=== PATIENT | female | born 1960 | race African-American/Black ===

== ENCOUNTER 2018-11-04 22:50 | Emergency (ER) | payer OTHER ==
[~2018-11-04] VITALS: Ht 152.4 cm; Wt 99.8 kg
[2018-11-04] MEDS ORDERED: cloNIDine HCL 0.1 MG TAB PO ONE (23:15)
[2018-11-04 23:36] LABS: Basophils # (auto) 0.1 uL; Eosinophils # (auto) 0.4 uL; Hemoglobin 12.4 g/dL (12.2-16.2); Monocytes # (auto) 0.9 uL; Red Cell Distribution Width 14.8 % (11.8-14.3)
[2018-11-04 23:38] LABS: Basophils % (auto) 0.7 % (0.0-2.0); Eosinophils % (auto) 3.3 % (0.0-7.0); Hematocrit 38.9 % (36.0-46.0); Lymphocytes # (auto) 1.9 uL; Lymphocytes % (auto) 14.5 % (10.0-50.0); Mean Corpuscular Hemoglobin 27.1 pg (28.0-32.0); Mean Corpuscular Volume 84.6 fL (80.0-100.0); Monocytes % (auto) 6.6 % (0.0-12.0); Neutrophils # (auto) 9.8 uL; Neutrophils % (auto) 74.9 % (37.0-80.0); Platelet Count (auto) 261 10^3/uL (140-450)
[2018-11-04 23:51] LABS: INR 1.01 (0.9-1.15); Partial Thromboplastin Time 27.1 sec (23.64-32.05)
[2018-11-05 00:07] LABS: Albumin 3.4 g/dL (3.4-5.0); BUN/Creatinine Ratio 28.7; Calcium 8.7 mg/dL (8.5-10.1); Magnesium 1.5 mg/dL (1.6-2.6); Potassium 4.2 mmol/L (3.5-5.1)
[2018-11-05 00:12] LABS: Bilirubin, Total 0.4 mg/dL (0.2-1.0)
[2018-11-05 04:41] VITALS: BP 115/67
[2018-11-05 04:46] LABS: Urine Bacteria FEW /hpf (None Seen); Urine Blood 2+ /uL (Negative); Urine Specific Gravity 1.014 (1.001-1.035); Urine WBC 97 /hpf (0 - 5)
[2018-11-05] MEDS ORDERED: HYDROcodone-ACET 5/325MG TAB PO ONE (05:15)
[2018-11-05] MEDS ORDERED: ONDANSETRON ODT 4 MG TAB PO ONE (05:15)
== END 2018-11-05 05:52 | disposition home or self-care (01) ==
LOC: ER 22:58
DX: N39.0 Urinary tract infection, site not specified (principal); E11.9 Type 2 diabetes mellitus without complications; I10 Essential (primary) hypertension; Z86.73 Personal history of transient ischemic attack (TIA), and cerebral infarction without residual deficits; Z90.710 Acquired absence of both cervix and uterus
CPT/HCPCS: 36415; 74176; 80053; 81001; 83690; 83735; 84484; 85025; 85610; 85730; 93005; 99284; Q0162

== ENCOUNTER 2024-11-25 19:07 | Inpatient (IN) | payer BC, MEDICAID ==
[~2024-11-25] VITALS: Ht 152.4 cm; Wt 117.8 kg
--- NOTE | 2024-11-25 19:42 | ED.PDOC ---
History of Present Illness HPI Comments 63-year-old female who came to ER via EMS for weakness. Patient has history of hypertension and diabetes, states she has good compliance to her oral medication and insulin. Has been having episodes of nausea, vomiting and diarrhea for the past 2 days. Noted also abdominal pain with loss of appetite. Was generally weak today, in the upon arrival paramedics noted blood sugar of 70. Was given a bolus of D10 water and blood sugar improved to 140. REVIEW OF SYSTEMS: No fever, no chills, or fatigue HEENT: No sore throat, no earache, no congestion, no neck pain. Cardiac: No chest pain. No palpitations. Lungs: No shortness of breath, no cough. GI: (+) nausea, (+) vomiting, (+) diarrhea, no constipation, (+) abdominal pain : No dysuria, frequency, or urgency. No hematuria. Musculoskeletal: No joint pain , no joint swelling, no extremity edema. Skin: No rash, no itching. Neuro: No headache, no dizziness, (+) weakness Physical exam General: Awake, alert and oriented. Appears fatigued Skin: Skin in warm, dry and intact. Appropriate color for ethnicity. Nailbeds pink with no cyanosis. HEENT: The head is normocephalic and atraumatic. Conjunctivae are clear without exudates or hemorrhage. Sclera is non-icteric. EOM are intact. No signs of nystagmus. Eyelids are normal in appearance without swelling or lesions. Oral mucosa is pink and moist Neck: The neck is supple with normal range of motion. No JVD. Cardiac: Heart rate and rhythm are normal. No murmurs, gallops, or rubs are auscultated. Respiratory: No signs of respiratory distress. Lung sounds are clear in all lobes bilaterally without rales, rhonchi, or wheezes. Abdominal: Abdomen is soft, non-tender without distention. Bowel sounds are present and normoactive in all four quadrants. Extremities: Upper and lower extremities are atraumatic in appearance without deformity or edema. Neurological: The patient is awake, alert and oriented to person, place, and time with normal speech. Speech is clear. There is no facial asymmetry. Chief Complaint: Weakness Time Seen by MD: 19:40 Primary Care Provider: NELSY Silverio Notes: Hand Tube Winder Notes Allergies: Coded Allergies: NO KNOWN ALLERGIES (Unverified , 11/04/18) Information Source: Patient, Emergency Med Personnel Mode of Arrival: EMS Severity: Moderate Timing: Days Duration: Intermittent Past Medical History PAST MEDICAL HISTORY: CVA, DM, HTN Surgical History: Hysterectomy SPECIALTY PERSON History: No Pertinent SPECIALTY PERSON History Family History Family History: Unknown Social History Smoker: Non-Smoker Alcohol: Denies ETOH Use Drugs: Denies Drug Use Lives In: Home Was a procedure done? Was a procedure done?: No EKG EKG : Pulse Rate (adult): 100 Cardiac Rhythm: ST ST: Old, Ant, Infarct Comments T wave inversion, V1, V2, V4-6, AvF. No STEMI Differential Dx Considerations may include: Differential diagnoses considered include but are not limited to sepsis, CVA, ACS, PE, stroke, ICH, adrenal insufficiency, viral syndrome, thyroid storm, myxedema coma , DKA, HHS, hypoglycemia, anemia, GI bleeding, renal failure, dehydration, hepatic failure, electrolyte imbalance, carbon monoxide poisoning, malignancy, UTI, other. X-Ray, Labs, Meds, VS Vital Signs Date Time Temp Pulse Resp B/P (MAP) Pulse Ox O2 Delivery O2 Flow Rate FiO2 11/25/24 23:00 65 19 166/67 (100) 97 11/25/24 22:42 208/87 11/25/24 22:35 70 15 208/87 (127) 97 11/25/24 22:00 69 16 162/69 (100) 96 11/25/24 21:04 168/71 11/25/24 21:00 63 19 160/71 (100) 96 11/25/24 20:09 65 19 96 Room Air* 0 21 11/25/24 20:09 99.3 65 19 175/69 (104) 96 99.3 11/25/24 19:42 100 11/25/24 19:13 70 11/25/24 19:07 99.4 72 14 200/82 97 99.4 Lab Test 11/25/24 22:40 11/25/24 21:38 11/25/24 20:50 11/25/24 19:47 Range/Units Troponin I High Sensitivity 104 *H 99 *H 114 *H </=34 ng/L POC Glucose 94 70-106 mg/dl White Blood Count 10.4 4.4-10.8 10^3/uL Red Blood Count 4.11 4.0-5.20 10^6/uL Hemoglobin 11.3 L 12.2-16.2 g/dL Hematocrit 35.2 L 36.0-46.0 % Mean Corpuscular Volume 85.7 80.0-100.0 fL Mean Corpuscular Hemoglobin 27.6 L 28.0-32.0 pg Mean Corpuscular Hemoglobin Concent 32.2 32.0-36.0 g/dL Red Cell Distribution Width 14.9 H 11.8-14.3 % Platelet Count 237 140-450 10^3/uL Mean Platelet Volume 9.3 6.9-10.8 fL Neutrophils (%) (Auto) 67.2 37.0-80.0 % Lymphocytes (%) (Auto) 23.3 10.0-50.0 % Monocytes (%) (Auto) 6.4 0.0-12.0 % Eosinophils (%) (Auto) 2.4 0.0-7.0 % Basophils (%) (Auto) 0.7 0.0-2.0 % Neutrophils # (Auto) 7.0 1.6-8.6 10 ^3/uL Lymphocytes # (Auto) 2.4 0.4-5.4 10 ^3/uL Monocytes # (Auto) 0.7 0-1.3 10 ^3/uL Eosinophils # (Auto) 0.3 0-0.8 10 ^3/uL Basophils # (Auto) 0.1 0-0.2 10 ^3/uL Nucleated Red Blood Cells 0.0 % Sodium Level 143 136-145 mmol/L Potassium Level 3.8 3.5-5.1 mmol/L Chloride Level 113 H 98-107 mmol/L Carbon Dioxide Level 21 20-31 mmol/L Anion Gap 9 5-15 Blood Urea Nitrogen 17 9-23 mg/dL Creatinine 1.34 H 0.550-1.02 mg/dL Glomerular Filtration Rate Calc 45 >90 mL/min BUN/Creatinine Ratio 12.7 10.0-20.0 Serum Glucose 89 74-106 mg/dL Calcium Level 8.1 L 8.7-10.4 mg/dL B-Type Natriuretic Peptide 433.18 0-100 pg/mL Lipase 36 12-53 U/L Test 11/25/24 19:42 Range/Units POC Glucose 98 70-106 mg/dl Current Medications Medications (Trade) Dose Ordered Sig/Dasha Route Start Time Stop Time Status Last Admin Aspirin 324 mg ONCE ONCE PO 11/25/24 20:30 11/25/24 20:31 DC 11/25/24 20:49 Sodium Chloride 500 ml @ 500 mls/hr Q1H ONCE IV 11/25/24 20:45 11/25/24 21:44 DC 11/25/24 21:03 Clonidine HCl (Catapres Tablet) 0.2 mg ONCE ONCE PO 11/25/24 22:45 11/25/24 22:46 DC 11/25/24 22:42 EXAM: XY CHEST XRAY 1 VIEW CLINICAL HISTORY: Elevated troponin TECHNIQUE: Single AP view of the chest WID: COMPARISON: None FINDINGS: Lines and tubes: None Chest: Cardiomegaly without pulmonary vascular congestion. No pleural effusion, pneumothorax, or consolidation. The osseous structures are grossly intact. IMPRESSION: Cardiomegaly. Time of 1ST Reevaluation: 19:36 Reevaluation 1ST: Unchanged Patient Education/Counseling: Other (Need for admission) Family Education/Counseling: No Family Present SEPSIS Sepsis Screen Physician Orders Urinalysis (11/25/24 19:33) Blood Glucose Assessment (11/25/24 19:33) Troponin-I Hs (11/25/24 23:30) Electrocardigram (11/25/24 20:34) Electrocardigram (11/25/24 21:34) Electrocardigram (11/25/24 23:34) Quarter Trimmer (11/25/24 ) Saline Lock (11/25/24 20:37) Chest Xray 1 View (11/25/24 20:37) Aspirin Tablet (11/26/24 10:00) * Cardiology Consult (11/25/24 22:21) Atorvastatin (Lipitor) (11/26/24 22:00) Amlodipine Tablet (Norvasc Tablet) (11/26/24 10:00) Hydralazine Injection (Apresoline Inject (11/25/24 22:30) Consistent Carb(Ccho)Diabetes (11/26/24 Breakfast) Glucose Blood (Accu-Chek Comfort Curve T (11/26/24 00:00) Insulin R (Human) (Insulin R) (11/26/24 00:00) Dextrose 50% Syringe (11/25/24 22:30) Allergies (11/25/24 22:21) Code Status (11/25/24 22:21) Sodium Chloride Lock (Saline Lock Ns) (11/26/24 06:00) Oxygen Per Hour (11/25/24 22:21) Hydrocodone-Acet 5/325mg Tab ([place] 5/32 (11/25/24 22:30) Ondansetron Hcl (Zofran) (11/25/24 22:30) Docusate Sodium Capsule (Colace Capsule) (11/25/24 22:30) Complete Blood Count (11/26/24 04:00) Comprehensive Metabolic Panel (11/26/24 04:00) Echo 2d Mode Cardiac Dop (11/25/24 22:21) Condition: Serious (11/25/24 22:21) Acetaminophen Tablet (Tylenol Tablet) (11/25/24 22:30) Bedrest With Bathroom Privileg (11/25/24 22:21) Sequential Compression Device (11/25/24 ) Vital Signs Date Time Temp Pulse Resp B/P (MAP) Pulse Ox O2 Delivery O2 Flow Rate FiO2 11/25/24 23:00 65 19 166/67 (100) 97 11/25/24 22:42 208/87 11/25/24 22:35 70 15 208/87 (127) 97 11/25/24 22:00 69 16 162/69 (100) 96 11/25/24 21:04 168/71 11/25/24 21:00 63 19 160/71 (100) 96 11/25/24 20:09 65 19 96 Room Air* 0 21 11/25/24 20:09 99.3 65 19 175/69 (104) 96 99.3 11/25/24 19:42 100 11/25/24 19:13 70 11/25/24 19:07 99.4 72 14 200/82 97 99.4 Laboratory Tests Test 11/25/24 19:47 White Blood Count 10.4 10^3/uL (4.4-10.8) Medications Medications Dose Ordered Sig/Dasha Route Start Time Stop Time Status Last Admin Dose Admin Aspirin 324 mg ONCE ONCE PO 11/25/24 20:30 11/25/24 20:31 DC 11/25/24 20:49 Clonidine HCl 0.2 mg ONCE ONCE PO 11/25/24 22:45 11/25/24 22:46 DC 11/25/24 22:42 Sodium Chloride 500 ml @ 500 mls/hr Q1H ONCE IV 11/25/24 20:45 11/25/24 21:44 DC 11/25/24 21:03 Departure 1 Departure Time of Disposition: 23:52 Impression: Primary Impression: Generalized weakness Additional Impressions: Elevated troponin Hypoglycemia Disposition: ADMITTED INPATIENT Condition: Stable Comments 63-year-old female who presented with a complaint of generalized weakness and h ypoglycemia. Blood sugar improved after treatment with EMS. Patient found to have elevated troponin, no STEMI on EKG. Patient admitted to hospitalist service for further treatment, evaluation and monitoring. Extensive evaluation was performed in attempt to identify or rule out: (See differential diagnosis section) The following tests were ordered, and results were reviewed by me and discussed with patient: (See diagnostic results section) The following test were independently interpreted by me: EKG Additional information was gathered from interviewing the following independent historians: EMS personnel Decision regarding hospitalization or escalation of hospital level of care: Risk and benefits of admission for further treatment of patient's condition was considered. Due to patient's current clinical condition, high risk of decline and poor outcome if discharged and need for further inpatient management and monitoring, patient will be admitted to the hospital. Discussed with patient. Critical Care Note Critical Care Time?: No Stability Stability form required: No Heart Score Heart Score: Heart Score Response (Comments) Value History N/A 0 EKG N/A 0 Age N/A 0 Risk Factors N/A 0 Troponin N/A 0 Total 0 I personally scribed for YAHIR NICKERSON MD ([email or web address]) on 11/25/24 at 19:42. Electronically submitted by Luis Boateng ([email or web address]). I personally scribed for YAHIR NICKERSON MD ([email or web address]) on 11/25/24 at 21:33. Electronically submitted by Luis Boateng ([employer]). YAHIR NICKERSON MD Nov 25, 2024 19:42
[2024-11-25 20:00] LABS: Hematocrit 35.2 % (36.0-46.0); Hemoglobin 11.3 g/dL (12.2-16.2); Mean Corpuscular Hemoglobin 27.6 pg (28.0-32.0); Mean Corpuscular Volume 85.7 fL (80.0-100.0); Nucleated Red Blood Cells % 0.0 %
[2024-11-25 20:04] LABS: Potassium 3.8 mmol/L (3.5-5.1); Sodium 143 mmol/L (136-145)
[2024-11-25 20:05] LABS: Anion Gap 9 (5-15); Carbon Dioxide 21 mmol/L (20-31)
[2024-11-25 20:09] VITALS: PULSE 65; RESP 19; O2SAT 96
--- NOTE | 2024-11-25 20:09 | ECG ---
[facility]– [place] Date: 2024-11-25 Test Time: 19:13:21 Pat Name: DANIELA HOLMAN Department: ED Room: 0275T Gender: F [employer] Manager: ZANA : 1960 Requested By: YAHIR NICKERSON Order Number: [id number] Reading MD: Zachary Waters Measurements Intervals Thayer Rate: 70 P: 53 GA: 166 QRS: 54 QRSD: 73 T: 236 QT: 397 QTc: 429 Interpretive Statements Sinus rhythm Anteroseptal infarct, old Repol abnrm suggests ischemia, anterolateral Electronically Signed On 11-29-2024 22:46:13 PDT by Zachary Waters Please click the below link to view image of tracing.
[2024-11-25 20:10] LABS: Glucose 89 mg/dL (74-106)
[2024-11-25 20:11] LABS: BUN/Creatinine Ratio 12.7 (10.0-20.0); Blood Urea Nitrogen 17 mg/dL (9-23); Lipase 36 U/L (12-53)
[2024-11-25 20:18] LABS: Calcium 8.1 mg/dL (8.7-10.4); Chloride 113 mmol/L (98-107)
[2024-11-25] MEDS: SODIUM CHLORIDE 0.9% 500 ML IV ONE (21:03)
[2024-11-25] MEDS: NITROGLYCERIN 2% OINT 1GM PKG TD ONE (21:04)
--- NOTE | 2024-11-25 21:19 | DVH ---
EXAM: XY CHEST XRAY 1 VIEW CLINICAL HISTORY: Elevated troponin TECHNIQUE: Single AP view of the chest WID: COMPARISON: None FINDINGS: Lines and tubes: None Chest: Cardiomegaly without pulmonary vascular congestion. No pleural effusion, pneumothorax, or consolidation. The osseous structures are grossly intact. IMPRESSION: Cardiomegaly.
[2024-11-25] MEDS ORDERED: HYDROcodone-ACET 5/325MG TAB PO PRN (22:30)
[2024-11-25] MEDS ORDERED: ONDANSETRON HCL 4 MG/2 ML VIAL IV PRN (22:30)
[2024-11-25] MEDS ORDERED: DEXTROSE (50%) 50ML SYRG IV PRN (22:30)
[2024-11-25] MEDS ORDERED: ACETAMINOPHEN 325 MG TAB PO PRN (22:30)
[2024-11-25] MEDS ORDERED: DOCUSATE SOD 100 MG CAP PO PRN (22:30)
--- NOTE | 2024-11-25 23:29 | DVHHP2 ---
History of Present Illness Reason for Visit: Diabetes mellitus with hypoglycemia History of Present Illness The patient is a 63-year-old female with past medical history of CVA, DM, and hypertension who presented to [facility] ED with complaint of generalized weakness. Patient reports she has been experiencing nausea, vomiting, diarrhea, abdominal pain and loss of appetite for the past two days. Patient's initial blood sugar was 70 and was given bolus of D10 water and blood sugar improved to 140. Patient was seen and evaluated in the ED, laboratory data shows WBC 10.4, platelets 237, sodium 143, potassium 3.8, BUN 17, creatinine 1.34, GFR 45, glucose 89, calcium 8.1, BNP 433.18, troponin 99, blood pressure 168/71, heart rate 64, temperature 99.3 F, O2 saturation 96% on room air. Chest x-ray revealing cardiomegaly. Patient was given aspirin 325 mg p.o. x1, please see medication orders section in the computer. On my assessment, patient denied chest pain at this moment, no headache, no dizziness, no shortness of breaths, no nausea, no vomiting, no fever, no chills. Patient was admitted for further evaluation and medical management. Past Medical History CVA, DM, HTN Past Surgical History Hysterectomy Family History Reviewed, noncontributory to the management of this case. Past Social History The patient lives at home, denies smoking, alcohol or illicit drugs abuse. Review of Systems Constitutional: Yes: Weakness; No: Fever, Chills, Sweats, Malaise, Other Eyes: No: Pain, Vision change, Conjunctivae inflammation, Eyelid inflammation, Other, Redness ENT: No: Ear pain, Ear discharge, Nose pain, Nose discharge, Nose congestion, Mouth pain, Mouth swelling, Throat pain, Throat swelling, Other Respiratory: No: Cough, Dry, Shortness of breath, SOB with excertion, Wheezing, Hemoptysis, Pleuritic Pain, Sputum, Wheezing, Other Cardiovascular: No: Chest Pain, Palpitations, Orthopnea, Paroxysmal Noc. Dyspnea, Edema, Lt Headedness, Other Gastrointestinal: Nausea, Vomiting, Abdominal Pain, Diarrhea, Other (Loss of appetite); No: Constipation, Melena, Hematochezia Genitourinary: No Dysuria, No Frequency, No Incontinence, No Hematuria, No Retention, No Other Musculoskeletal: No: other, neck pain, shoulder pain, arm pain, back pain, hand pain, leg pain, foot pain Skin: No: Rash, Lesions, Jaundice, Bruising, Other Neurological: No: Weakness, Numbness, Incoordination, Change in speech, Confusion, Seizures, Other Allergies: Coded Allergies: NO KNOWN ALLERGIES (Unverified , 11/04/18) Medications Current Medications Medications Dose Ordered Sig/Dasha Route Start Time Stop Time Status Last Admin Dose Admin Aspirin 81 mg DAILY PO 11/26/24 10:00 Atorvastatin Calcium 20 mg HS PO 11/26/24 22:00 Amlodipine Besylate 5 mg DAILY PO 11/26/24 10:00 Hydralazine HCl 10 mg Q6HP PRN IV 11/25/24 22:30 Diagnostic Test (Pha) 1 strip IQ4HR 11/26/24 00:00 Insulin Human Regular IQ4HR SC 11/26/24 00:00 Dextrose 50 ml UD PRN IV 11/25/24 22:30 Sodium Chloride 10 ml Q8HR IV 11/26/24 06:00 Acetaminophen/ Hydrocodone Bitart 1 tab Q4HP PRN PO 11/25/24 22:30 Ondansetron HCl 4 mg Q4HP PRN IV 11/25/24 22:30 Docusate Sodium 100 mg BIDPRN PRN PO 11/25/24 22:30 Acetaminophen 650 mg Q6HP PRN PO 11/25/24 22:30 Exam Vital Signs Vital Signs Date Time Temp Pulse Resp B/P (MAP) Pulse Ox O2 Delivery O2 Flow Rate FiO2 11/25/24 22:42 208/87 11/25/24 22:35 70 15 97 11/25/24 20:09 Room Air* 0 21 11/25/24 20:09 99.3 99.3 General Appearance: Alert, Oriented X3, Cooperative, No acute distress HEENT: Atraumatic, PERRLA, EOMI, Mucous membr. moist/pink Respiratory: Normal air movement Cardiovascular: Regular rate, Normal S1, Normal S2, No murmurs Abdominal: Normal bowel sounds, Soft, No tenderness, No hepatospenomegaly, No masses Extremities: No clubbing, No cyanosis, Normal pulses, No tenderness/swelling Skin: No rashes, No significant lesion Neuro: Normal speech, Normal tone, Sensation intact, Cranial nerves 3-12 NL, Reflexes 2+, Other (Generalized weakness) Psych/Mental Status: Mental status NL, Mood NL Labs/Xrays Labs Test 11/25/24 22:40 11/25/24 21:38 11/25/24 19:47 Range/Units Troponin I High Sensitivity 104 *H </=34 ng/L POC Glucose 94 70-106 mg/dl White Blood Count 10.4 4.4-10.8 10^3/uL Red Blood Count 4.11 4.0-5.20 10^6/uL Hemoglobin 11.3 L 12.2-16.2 g/dL Hematocrit 35.2 L 36.0-46.0 % Mean Corpuscular Volume 85.7 80.0-100.0 fL Mean Corpuscular Hemoglobin 27.6 L 28.0-32.0 pg Mean Corpuscular Hemoglobin Concent 32.2 32.0-36.0 g/dL Red Cell Distribution Width 14.9 H 11.8-14.3 % Platelet Count 237 140-450 10^3/uL Mean Platelet Volume 9.3 6.9-10.8 fL Neutrophils (%) (Auto) 67.2 37.0-80.0 % Lymphocytes (%) (Auto) 23.3 10.0-50.0 % Monocytes (%) (Auto) 6.4 0.0-12.0 % Eosinophils (%) (Auto) 2.4 0.0-7.0 % Basophils (%) (Auto) 0.7 0.0-2.0 % Neutrophils # (Auto) 7.0 1.6-8.6 10 ^3/uL Lymphocytes # (Auto) 2.4 0.4-5.4 10 ^3/uL Monocytes # (Auto) 0.7 0-1.3 10 ^3/uL Eosinophils # (Auto) 0.3 0-0.8 10 ^3/uL Basophils # (Auto) 0.1 0-0.2 10 ^3/uL Nucleated Red Blood Cells 0.0 % Sodium Level 143 136-145 mmol/L Potassium Level 3.8 3.5-5.1 mmol/L Chloride Level 113 H 98-107 mmol/L Carbon Dioxide Level 21 20-31 mmol/L Anion Gap 9 5-15 Blood Urea Nitrogen 17 9-23 mg/dL Creatinine 1.34 H 0.550-1.02 mg/dL Glomerular Filtration Rate Calc 45 >90 mL/min BUN/Creatinine Ratio 12.7 10.0-20.0 Serum Glucose 89 74-106 mg/dL Calcium Level 8.1 L 8.7-10.4 mg/dL B-Type Natriuretic Peptide 433.18 0-100 pg/mL Lipase 36 12-53 U/L PATIENT: MATTHEW HOLMANCCT: [id number] UNIT: [id number] : 1960 LOC: ER ROOM / BED: / AGE / SEX: 63 / F ADM STATUS: REG ER SERVICE 36 ORDERING PHYSICIAN: YAHIR NICKERSON MD PROCEDURE(s): CXR1 - CHEST XRAY 1 VIEW REASON: Elevated troponin ORDER NUMBER(s): [id number], ACCESSION NUMBER(s): [id number] EXAM: XY CHEST XRAY 1 VIEW CLINICAL HISTORY: Elevated troponin TECHNIQUE: Single AP view of the chest WID: COMPARISON: None FINDINGS: Lines and tubes: None Chest: Cardiomegaly without pulmonary vascular congestion. No pleural effusion, pneumothorax, or consolidation. The osseous structures are grossly intact. IMPRESSION: Cardiomegaly. SEPSIS Sepsis Screen Date sepsis recognized/suspect: Nov 25, 2024 Time Sepsis recognized/suspect: 2008 Recent Procedure: No On Antibiotic Therapy: No Respiratory Rate >20: No Heart Rate >90: No Temp<36 C (96.8 F) or >38.3 C: No SBP <90 or MAP <65 mmHG: No New Acute Mental Status Change: No Is the patient on CPAP, BIPAP,: No Physician Orders Urinalysis (11/25/24 19:33) Blood Glucose Assessment (11/25/24 19:33) Troponin-I Hs (11/25/24 23:30) Electrocardigram (11/25/24 20:34) Electrocardigram (11/25/24 21:34) Electrocardigram (11/25/24 23:34) Guest House Manager (11/25/24 ) Saline Lock (11/25/24 20:37) Chest Xray 1 View (11/25/24 20:37) Aspirin Tablet (11/26/24 10:00) * Cardiology Consult (11/25/24 22:21) Atorvastatin (Lipitor) (11/26/24 22:00) Amlodipine Tablet (Norvasc Tablet) (11/26/24 10:00) Hydralazine Injection (Apresoline Inject (11/25/24 22:30) Consistent Carb(Ccho)Diabetes (11/26/24 Breakfast) Glucose Blood (Accu-Chek Comfort Curve T (11/26/24 00:00) Insulin R (Human) (Insulin R) (11/26/24 00:00) Dextrose 50% Syringe (11/25/24 22:30) Allergies (11/25/24 22:21) Code Status (11/25/24 22:21) Sodium Chloride Lock (Saline Lock Ns) (11/26/24 06:00) Oxygen Per Hour (11/25/24 22:21) Hydrocodone-Acet 5/325mg Tab ([place] 5/32 (11/25/24 22:30) Ondansetron Hcl (Zofran) (11/25/24 22:30) Docusate Sodium Capsule (Colace Capsule) (11/25/24 22:30) Complete Blood Count (11/26/24 04:00) Comprehensive Metabolic Panel (11/26/24 04:00) Echo 2d Mode Cardiac Dop (11/25/24 22:21) Condition: Serious (11/25/24 22:21) Acetaminophen Tablet (Tylenol Tablet) (11/25/24 22:30) Bedrest With Bathroom Privileg (11/25/24 22:21) Sequential Compression Device (11/25/24 ) Admit (11/25/24 23:26) Nitroglycerin Sublingual (Ntrostat Subli (11/25/24 23:30) Morphine Sulfate Injection (11/25/24 23:30) Stat Ekg For Chest Pain (11/25/24 23:26) Notify Md Of Changes From Base (11/25/24 23:26) Accounting Generalist For 24 Hours (11/25/24 23:26) Emergency Dysrhythmia Protocol (11/25/24 23:26) Rhythm Strips Once Every Shift (11/25/24 23:26) Oxygen By Nasal Cannula (11/25/24 23:26) Vital Signs Date Time Temp Pulse Resp B/P (MAP) Pulse Ox O2 Delivery O2 Flow Rate FiO2 11/25/24 22:42 208/87 11/25/24 22:35 70 15 208/87 (127) 97 11/25/24 21:04 168/71 11/25/24 21:00 63 19 160/71 (100) 96 11/25/24 20:09 65 19 96 Room Air* 0 21 11/25/24 20:09 99.3 65 19 175/69 (104) 96 99.3 11/25/24 19:42 100 11/25/24 19:13 70 11/25/24 19:07 99.4 72 14 200/82 97 99.4 Laboratory Tests Test 11/25/24 19:47 White Blood Count 10.4 10^3/uL (4.4-10.8) Medications Medications Dose Ordered Sig/Dasha Route Start Time Stop Time Status Last Admin Dose Admin Aspirin 324 mg ONCE ONCE PO 11/25/24 20:30 11/25/24 20:31 DC 11/25/24 20:49 324 MG Clonidine HCl 0.2 mg ONCE ONCE PO 11/25/24 22:45 11/25/24 22:46 DC 11/25/24 22:42 0.2 MG Sodium Chloride 500 ml @ 500 mls/hr Q1H ONCE IV 11/25/24 20:45 11/25/24 21:44 DC 11/25/24 21:03 500 MLS/HR Assessment/Plan Assessment/Plan Generalized weakness Elevated troponin Hypocalcemia Acute renal injury Diabetes mellitus with hypoglycemia Elevated brain natriuretic peptide level Plan 1. Admit to telemetry units 2. Breathing treatment 3. Pain control management 4. Management of fluids and electrolytes 5. Consultation for cardiology 6. Diagnostic tests chest x-ray 7. DVT prophylaxis-on aspirin 8. Repeat labs CBC, CMP in a.m. 9. Continue with current medical management 10. Treatment plan discussed with patient and RN. Patient verbalized understanding. Plan discussed with: Patient, Other (RN) My Orders Orders - RAUL BAILEY DNP Procedure Category Date Status Time Aspirin Tablet PHA 11/26/24 In Process 10:00 * Cardiology Consult CONS 11/25/24 Transmitted 22:21 Atorvastatin (Lipitor) PHA 11/26/24 In Process 22:00 Amlodipine Tablet PHA 11/26/24 In Process (Norvasc Tablet) 10:00 Hydralazine Injection PHA 11/25/24 In Process (Apresoline Inject 22:30 Consistent DIET 11/26/24 Transmitted Carb(Ccho)Diabetes Breakfast Glucose Blood PHA 11/26/24 In Process (Accu-Chek Comfort 00:00 Insulin R (Human) PHA 11/26/24 In Process (Insulin R) 00:00 Dextrose 50% Syringe PHA 11/25/24 In Process 22:30 Allergies HARDIK 11/25/24 In Process 22:21 Code Status CODE 11/25/24 Transmitted 22:21 Sodium Chloride Lock PHA 11/26/24 In Process (Saline Lock Ns) 06:00 Oxygen Per Hour RT 11/25/24 Transmitted 22:21 Hydrocodone-Acet PHA 11/25/24 In Process 5/325mg Tab ([place]ell 22:30 Ondansetron Hcl PHA 11/25/24 In Process (Zofran) 22:30 Docusate Sodium PHA 11/25/24 In Process Capsule (Colace 22:30 Complete Blood Count LAB 11/26/24 Verified 04:00 Comprehensive LAB 11/26/24 Verified Metabolic Panel 04:00 Echo 2d Mode Cardiac US 11/25/24 Logged DOP 22:21 Condition: Serious HARDIK 11/25/24 In Process 22:21 Acetaminophen Tablet PHA 11/25/24 In Process (Tylenol Tablet) 22:30 Bedrest With Bathroom HARDIK 11/25/24 In Process Privileg 22:21 Sequential HARDIK 11/25/24 In Process Compression Device Admit ADMIT 11/25/24 Verified 23:26 Nitroglycerin [facility] 11/25/24 Verified Sublingual (Ntrostat 23:30 Morphine Sulfate PHA 11/25/24 Verified Injection 23:30 Stat Ekg For Chest [facility] 11/25/24 Verified Pain 23:26 Notify Md Of Changes [facility] 11/25/24 Verified From Base 23:26 Accounting Generalist For [facility] 11/25/24 Verified 24 Hours 23:26 Emergency Dysrhythmia [facility] 11/25/24 Verified Protocol 23:26 Rhythm Strips Once [facility] 11/25/24 Verified Every Shift 23:26 Oxygen By Nasal RT 11/25/24 Verified Cannula 23:26 Problem List: (1) Generalized weakness (2) Elevated troponin (3) Hypocalcemia (4) Acute renal injury (5) Diabetes mellitus with hypoglycemia (6) Elevated brain natriuretic peptide (BNP) level Date of Service: Nov 25, 2024 Billing Provider: RAUL BAILEY DNP Common Visit Codes: [id number] INP/OBS CARE (HIGH) RAUL BAILEY DNP Nov 25, 2024 23:29
[2024-11-25] MEDS ORDERED: MORPHINE SULFATE INJ 2 MG/ml SYRG IV PRN (23:30)
[2024-11-25] MEDS ORDERED: NITROGLYCERIN 0.4 MG SL TAB SL PRN (23:30)
--- NOTE | 2024-11-25 23:49 | DVHINCON2 ---
Date of service: Nov 25, 2024 Referring Physician Jesse Reason for Consultation Elevated troponin History of Present Illness This is a 63-year-old female with a PMH of CVA, DM and HTN who is brought in by EMS for a complaint of weakness. Patient states she is complaint with her oral medication and insulin. Patient reports she has been having episodes of nausea, vomiting and diarrhea for the past 2 days. Noted also abdominal pain with loss of appetite. Patient was generally weak today, in the upon arrival paramedics noted blood sugar of 70. Patient was given a bolus of D10 water and blood sugar improved to 140. TROP 114, 99, 104. Chest x-ray shows cardiomegaly. EKG shows ta chycardia at 100. Patient was admitted to the hospital. I am asked to consult on this patient. Allergies: Coded Allergies: NO KNOWN ALLERGIES (Unverified , 11/04/18) Current Medications Current Medications Medications (Trade) Dose Ordered Sig/Dasha Route PRN Reason Start Time Stop Time Status Last Admin Aspirin 81 mg DAILY PO 11/26/24 10:00 Atorvastatin Calcium (Lipitor) 20 mg HS PO 11/26/24 22:00 Amlodipine Besylate (Norvasc Tablet) 5 mg DAILY PO 11/26/24 10:00 Hydralazine HCl (Apresoline Injection) 10 mg Q6HP PRN IV SBP>150 11/25/24 22:30 Diagnostic Test (Pha) (Accu-Chek Comfort Curve T) 1 strip IQ4HR 11/26/24 00:00 Insulin Human Regular (InsuLIN R) IQ4HR SC 11/26/24 00:00 Dextrose 50 ml UD PRN IV Blood Sugar LESS THAN 60 11/25/24 22:30 Sodium Chloride (Saline Lock Ns) 10 ml Q8HR IV 11/26/24 06:00 Acetaminophen/ Hydrocodone Bitart (Bolivar 5/325MG Tab) 1 tab Q4HP PRN PO MODERATE PAIN (4-6 PAIN SCALE) 11/25/24 22:30 Ondansetron HCl (Zofran) 4 mg Q4HP PRN IV NAUSEA / VOMITING 11/25/24 22:30 Docusate Sodium (Colace Capsule) 100 mg BIDPRN PRN PO FOR CONSTIPATION 11/25/24 22:30 Acetaminophen (Tylenol Tablet) 650 mg Q6HP PRN PO PAIN SCALE 1-3 OR TEMP>100.4 11/25/24 22:30 Review of Systems REVIEW OF SYSTEMS: No fever, no chills, or fatigue HEENT: No sore throat, no earache, no congestion, no neck pain. Cardiac: No chest pain. No palpitations. Lungs: No shortness of breath, no cough. GI: (+) nausea, (+) vomiting, (+) diarrhea, no constipation, (+) abdominal pain : No dysuria, frequency, or urgency. No hematuria. Musculoskeletal: No joint pain , no joint swelling, no extremity edema. Skin: No rash, no itching. Neuro: No headache, no dizziness, (+) weakness Vital Signs Vital Signs Date Time Temp Pulse Resp B/P (MAP) Pulse Ox O2 Delivery O2 Flow Rate FiO2 11/25/24 22:42 208/87 11/25/24 22:35 70 15 97 11/25/24 20:09 Room Air* 0 21 11/25/24 20:09 99.3 99.3 Physical Exam GENERAL: Alert and oriented x 3. No acute distress. EYES: PERRL, EOMI. Anicteric. HENT: Moist mucous membranes. LUNGS: Clear to auscultation bilaterally. CARDIOVASCULAR: Regular rate and rhythm. ABDOMEN: Soft, nontender and nondistended. EXTREMITIES: No edema. NEUROLOGIC: No focal neurological deficits. SKIN: Warm, dry. Labs/Diagnostic Data Labs Test 11/25/24 22:40 11/25/24 21:38 11/25/24 19:47 Range/Units Troponin I High Sensitivity 104 *H </=34 ng/L POC Glucose 94 70-106 mg/dl White Blood Count 10.4 4.4-10.8 10^3/uL Red Blood Count 4.11 4.0-5.20 10^6/uL Hemoglobin 11.3 L 12.2-16.2 g/dL Hematocrit 35.2 L 36.0-46.0 % Mean Corpuscular Volume 85.7 80.0-100.0 fL Mean Corpuscular Hemoglobin 27.6 L 28.0-32.0 pg Mean Corpuscular Hemoglobin Concent 32.2 32.0-36.0 g/dL Red Cell Distribution Width 14.9 H 11.8-14.3 % Platelet Count 237 140-450 10^3/uL Mean Platelet Volume 9.3 6.9-10.8 fL Neutrophils (%) (Auto) 67.2 37.0-80.0 % Lymphocytes (%) (Auto) 23.3 10.0-50.0 % Monocytes (%) (Auto) 6.4 0.0-12.0 % Eosinophils (%) (Auto) 2.4 0.0-7.0 % Basophils (%) (Auto) 0.7 0.0-2.0 % Neutrophils # (Auto) 7.0 1.6-8.6 10 ^3/uL Lymphocytes # (Auto) 2.4 0.4-5.4 10 ^3/uL Monocytes # (Auto) 0.7 0-1.3 10 ^3/uL Eosinophils # (Auto) 0.3 0-0.8 10 ^3/uL Basophils # (Auto) 0.1 0-0.2 10 ^3/uL Nucleated Red Blood Cells 0.0 % Sodium Level 143 136-145 mmol/L Potassium Level 3.8 3.5-5.1 mmol/L Chloride Level 113 H 98-107 mmol/L Carbon Dioxide Level 21 20-31 mmol/L Anion Gap 9 5-15 Blood Urea Nitrogen 17 9-23 mg/dL Creatinine 1.34 H 0.550-1.02 mg/dL Glomerular Filtration Rate Calc 45 >90 mL/min BUN/Creatinine Ratio 12.7 10.0-20.0 Serum Glucose 89 74-106 mg/dL Calcium Level 8.1 L 8.7-10.4 mg/dL B-Type Natriuretic Peptide 433.18 0-100 pg/mL Lipase 36 12-53 U/L Assessment Elevated troponin. Generalized weakness. Diabetes mellitus with hypoglycemia. HTN. Plan/Recommendation I agree with your ongoing assessment and care of plan. Echocardiogram. Morphine and Bolivar for pain management. Amlodipine. Aspirin, Lipitor. IV Hydralazine for SBP > 150. Nitro SL. Additional plan as per the hospital course. A total of 45 minutes was spent reviewing the patient record, examining the patient, making a diagnostic and therapeutic plan, discussing this plan with medical personnel, following up on diagnostic studies and following the patient for clinical stability excluding any and all procedures. At least 50% of this time was spent in direct, [id number] contact. Plan discussed with: Patient MAITE ALCALA MD Nov 25, 2024 23:31
[2024-11-26] VITALS (9 sets, daily range): BP systolic 123–184; BP diastolic 60–117; PULSE 60–85; RESP 17–18; TEMP 97.6–98.6; O2SAT 95–98
[2024-11-26] MEDS: InsuLIN REG 1unit/0.01ml Soln (100units/ml) SC SCH (00:16)
[2024-11-26] MEDS: ACCU-CHEK COMFORT CURVE STRIP VI SCH (00:17)
[2024-11-26] MEDS: hydrALAZINE HCL 20 MG/ML VL IV PRN (02:10)
[2024-11-26] MEDS: CALCIUM GLUC 1,000mg/50ml-NS 50 ML IV ONE (02:30)
[2024-11-26] MEDS ORDERED: INSR100KIT IV (02:45)
[2024-11-26 05:59] LABS: Hematocrit 33.7 % (36.0-46.0); Hemoglobin 10.9 g/dL (12.2-16.2); Mean Corpuscular Hemoglobin 28.5 pg (28.0-32.0); Mean Corpuscular Volume 87.9 fL (80.0-100.0); Nucleated Red Blood Cells % 0.0 %
[2024-11-26] MEDS: SODIUM CHLOR 0.9% PF (SALINE LOCK) 10ML VIAL/SYR IV SCH (06:00)
[2024-11-26 06:08] LABS: Albumin 3.6 g/dL (3.2-4.8); Alkaline Phosphatase 83 U/L (46-116); Anion Gap 11 (5-15); BUN/Creatinine Ratio 11.8 (10.0-20.0); Blood Urea Nitrogen 22 mg/dL (9-23); Calcium 9.2 mg/dL (8.7-10.4); Carbon Dioxide 21 mmol/L (20-31); Potassium 3.8 mmol/L (3.5-5.1); Sodium 141 mmol/L (136-145); Total Protein 6.2 g/dL (5.7-8.2)
[2024-11-26 06:09] LABS: Bilirubin, Total 0.4 mg/dL (0.2-1.0)
[2024-11-26 06:11] LABS: Alanine Aminotransferase < 9 U/L (7-40); Chloride 109 mmol/L (98-107); Glucose 197 mg/dL (74-106)
--- NOTE | 2024-11-26 08:35 | DVHPNRES ---
Progress Note Date Seen: Nov 26, 2024 Resident Creating Document: OSCAR CANDELARIO RESIDENT Medical Necessity Reason Pt with a Central, PICC or Fol: No Subjective Review of Systems Lucina Garcia is a 63-year-old female with past medical history of TIA, DM, HLD and hypertension who presented to ER with cc of headache, dizziness, weakness. Headache started yesterday in the morning, 8/10, throbbing, associated w/ mild tearing in the left eye. On arrival to ER she had an episode of dizziness with the feeling of everything around her was spinning. She had nausea, vomiting, with 3 episodes of vomiting before presenting to ER. She also complained for SOB since 2 yrs, progressively getting worse, now experience SOB on walking 10 feet. PMHx: TIAs in 2012, DM, HLD and hypertension PSHx: Unkown abdominal surgery in past Social history: Denies smoking, alcohol, recreational drug. Lives in house with daughter. Home medication: Unsure ROS: Constitutional: Complains of chills HEENT: Denies changes in vision and hearing. Respiratory: Shortness of breaths Cardiovascular: Denies chest discomfort or palpitations GI: Nausea, vomiting : Denies dysuria and urinary frequency. Musculoskeletal: Denies myalgias and joint pain Skin: Denies rash and pruritus. Neurological: Dizziness, headache, with tearing of left eye She was examined at bedside today. Her vitals show high blood pressure. She does not complain of any headache or dizziness now. She continues to complain of shortness of breaths. Objective vital signs Vital Sign Date Time Temp Pulse Resp B/P (MAP) Pulse Ox O2 Delivery O2 Flow Rate FiO2 11/26/24 05:00 97.9 60 17 143/71 (95) 98 97.9 11/26/24 01:52 Room Air* 0 21 Total Intake and Output 11/25/24 11/25/24 11/26/24 15:00 23:00 07:00 Intake Total 500 ml 0 ml Balance 500 ml 0 ml medications Current Medications Medications Dose Ordered Sig/Dasha Route Start Time Stop Time Status Last Admin Dose Admin Aspirin 81 mg DAILY PO 11/26/24 10:00 Atorvastatin Calcium 20 mg HS PO 11/26/24 22:00 Amlodipine Besylate 5 mg DAILY PO 11/26/24 10:00 Hydralazine HCl 10 mg Q6HP PRN IV 11/25/24 22:30 11/26/24 02:10 10 MG Diagnostic Test (Pha) 1 strip IQ4HR 11/26/24 00:00 11/26/24 03:58 1 STRIP Insulin Human Regular IQ4HR SC 11/26/24 00:00 11/26/24 04:00 4 UNITS Dextrose 50 ml UD PRN IV 11/25/24 22:30 Sodium Chloride 10 ml Q8HR IV 11/26/24 06:00 11/26/24 06:00 10 ML Acetaminophen/ Hydrocodone Bitart 1 tab Q4HP PRN PO 11/25/24 22:30 Ondansetron HCl 4 mg Q4HP PRN IV 11/25/24 22:30 Docusate Sodium 100 mg BIDPRN PRN PO 11/25/24 22:30 Acetaminophen 650 mg Q6HP PRN PO 11/25/24 22:30 Nitroglycerin 0.4 mg Q5MINP PRN SL 11/25/24 23:30 Morphine Sulfate 2 mg Q30M PRN IV 11/25/24 23:30 Examination General: Patient alert and oriented in person, place and time. Patient following commands. HEENT: Normocephalic, atraumatic, moist mucous membranes Respiratory/pulmonary: Clear lungs bilaterally, no associated crackles or wheezes. Cardiovascular: Normal heart sounds S1 and S2 with no associated murmurs Abdomen: Abdomen distended, there is no pain to palpation in any of the abdominal quadrants, no palpable masses. Extremities: Grade 1 pitting edema. Sequential compression device in place. There is no peripheral edema present at the lower extremities. Peripheral Pulses: 3+ Radial (R). 3+ Radial (L). 3+ Dorsalis pedis (R). 3+ Dorsalis pedis(L) Skin: No rashes or pruritus, there is no sacral edema present at this time. Neurological: Intact cranial nerves with no focal neurologic deficits. No meningeal signs laboratory and microbiology Laboratory Tests 11/26/24 04:48 Test 11/26/24 04:48 Range/Units Serum Glucose 197 H 74-106 mg/dL Problem List/Assessment/Plan Problem List/Assessment/Plan Presyncope, ruling out cardiac causes Hypertensive emergency, resolving Primary headache due to Migraine/cluster headache, possible CXR: Cardiomegaly without pulmonary vascular congestion. Labs show BNP elevated Echo ordered Pain management On telemetry Blood pressure management with amlodipine, hydralazine Cardiology consulted: recommended Echocardiogram. Tylenol for pain management. Continue Amlodipine, Aspirin, Lipitor, IV Hydralazine for SBP > 150. Dyslipidemia Continue Atorvastatin, aspirin Diabetes mellitus Continue sliding scale insulin Acute kidney injury, likely due to VMN Creatinine 1.87 Type 2 NSTEMI, likely due to hypertensive emergency Normocytic, normochromic anemia, unspecified Hypocalcemia, resolved Morbid obesity Pancreatitis, ruled out Lipase WNL DIET: consistent carb DVT PROPHYLAXIS: SCD CODE STATUS: Goals of care discussed with patient at bedside for more than 35 minutes. Full code DISPOSITION: Med/surge Patient's status and plan discussed with the patient. Case discussed with Dr. Birch. Plan discussed with: Patient Date of Service: Nov 26, 2024 Billing Provider: HONG BIRCH MD Common Visit Codes: [id number] INP/OBS CARE(HIGH) OSCAR CANDELARIO RESIDENT Nov 26, 2024 08:35 HONG BIRCH MD Nov 26, 2024 23:30
[2024-11-26] MEDS: FUROSEMIDE 20 MG/2 ML VIAL IV ONE (15:00)
--- NOTE | 2024-11-26 21:22 | DVHPN2 ---
Progress Note - Dictate Date Seen: Nov 26, 2024 Medical Necessity Reason Pt with a Central, PICC or Fol: No Subjective Patient was seen and evaluated in follow up. Patient is complaining of generalized pain. TILE MOLDER HAND 1.87, TROP 96. Echocardiogram is ordered/pending. Telemetry reviewed. vital signs Vital Sign Date Time Temp Pulse Resp B/P (MAP) Pulse Ox O2 Delivery O2 Flow Rate FiO2 11/26/24 12:26 98.0 66 17 128/60 (82) 96 98.0 11/26/24 08:00 Room Air* 0 21 Total Intake and Output 11/25/24 11/25/24 11/26/24 15:00 23:00 07:00 Intake Total 500 ml 0 ml Balance 500 ml 0 ml medications Current Medications Medications Dose Ordered Sig/Dasha Route Start Time Stop Time Status Last Admin Dose Admin Aspirin 81 mg DAILY PO 11/26/24 10:00 11/26/24 08:44 81 MG Atorvastatin Calcium 20 mg HS PO 11/26/24 22:00 Amlodipine Besylate 5 mg DAILY PO 11/26/24 10:00 11/26/24 08:45 5 MG Hydralazine HCl 10 mg Q6HP PRN IV 11/25/24 22:30 11/26/24 02:10 10 MG Diagnostic Test (Pha) 1 strip IQ4HR 11/26/24 00:00 11/26/24 11:35 1 STRIP Insulin Human Regular IQ4HR SC 11/26/24 00:00 11/26/24 11:40 3 UNITS Dextrose 50 ml UD PRN IV 11/25/24 22:30 Sodium Chloride 10 ml Q8HR IV 11/26/24 06:00 11/26/24 06:00 10 ML Ondansetron HCl 4 mg Q4HP PRN IV 11/25/24 22:30 Acetaminophen 650 mg Q6HP PRN PO 11/25/24 22:30 objective GENERAL: Alert and oriented x 3. No acute distress. EYES: PERRL, EOMI. Anicteric. HENT: Moist mucous membranes. LUNGS: Clear to auscultation bilaterally. CARDIOVASCULAR: Regular rate and rhythm. ABDOMEN: Soft, nontender and nondistended. EXTREMITIES: No edema. NEUROLOGIC: No focal neurological deficits. SKIN: Warm, dry. laboratory and microbiology Laboratory Tests 11/26/24 04:48 Test 11/26/24 04:48 Range/Units Serum Glucose 197 H 74-106 mg/dL Problem List Elevated troponin. Generalized weakness. Diabetes mellitus with hypoglycemia. HTN. Assessment/Plan Continued all current supportive medical care. Echocardiogram. Tylenol for pain management. Amlodipine. Aspirin, Lipitor. IV Hydralazine for SBP > 150. Additional plan as per the hospital course. Plan discussed with: Patient MAITE ALCALA MD Nov 26, 2024 13:30
[2024-11-26] MEDS ORDERED: ATORVASTATIN 20 MG TAB PO SCH (22:00)
[2024-11-26] MEDS ORDERED: DOCUSATE SOD 100 MG CAP PO PRN (22:30)
[2024-11-26] MEDS: ATORVASTATIN 20 MG TAB PO SCH (22:31)
[2024-11-26] MEDS: DOCUSATE SOD 100 MG CAP PO ONE (22:45)
[2024-11-26] MEDS: hydrALAZINE HCL 20 MG/ML VL IV ONE (22:49)
[2024-11-27] VITALS (9 sets, daily range): BP systolic 147–176; BP diastolic 66–85; PULSE 75–105; RESP 16–20; TEMP 97–97.5; O2SAT 95–98
--- NOTE | 2024-11-27 01:09 | DVHSR ---
APPROVED REPORT EXAM: Two-dimensional and M-mode echocardiogram with Doppler and color Doppler. Blood Pressure: 143/71 mmHg INDICATION chf exacerbation unspefied RISK FACTORS Obesity: Height: 5'0, Weight: 220 DIMENSIONS LVDd3.5 (3.8-5.7cm)LA (2D)2.9 (1.9-4.0cm)Aortic Root3.1 (2.0-3.7cm) LVDs2.3 (2.5-4.0cm)LA (MM) (1.9-4.0cm)Aortic Cusp Exc1.6 (1.5-2.0cm) EF (%) 65.0 (55-70%)Rt. Atrium (1.9-4.0cm)Asc. Aorta cm IVSd1.3 (0.7-1.1cm)RV (D) (1.8-2.4cm) PWd1.4 (0.7-1.1cm) Mitral Valve MitralMitral Stenosis E wave0.91m/sMV Mean GR.mmHg A wave1.05m/sMV Peak GR.67mmHg E/A ratio0.92D MVAcm2 DECEL [id number] 1/2 Timems Aortic Valve Aortic ValveAortic Stenosis V10.96m/Ana Mean GR.5mmHg V21.32m/Ana Peak GR.7mmHg LVOT Diameter1.7 (1.8-2.4cm)Doppler AVA1.65cm2 Pulmonic Valve V20.79m/s Other Information Technically limited study due to patient position.body habitus. Conclusion normal lv ef is 65% MILD LVH AND MILD LV DIASTOLIC DYSFUNCTION POSTERIOR MITRAL LEAFLET IS CALCIFIED AORTIC SCLEROSIS NO EFFUSION NORMAL RV FUNCTION
[2024-11-27 08:00] LABS: Anion Gap 10 (5-15); Carbon Dioxide 22 mmol/L (20-31); Potassium 4.2 mmol/L (3.5-5.1); Sodium 143 mmol/L (136-145)
[2024-11-27 08:02] LABS: Calcium 8.8 mg/dL (8.7-10.4)
[2024-11-27 08:06] LABS: BUN/Creatinine Ratio 14.8 (10.0-20.0)
[2024-11-27 08:07] LABS: Blood Urea Nitrogen 30 mg/dL (9-23); Chloride 111 mmol/L (98-107); Glucose 202 mg/dL (74-106)
[2024-11-27] MEDS: FUROSEMIDE 20 MG/2 ML VIAL IV SCH (08:13)
[2024-11-27 08:16] LABS: Hematocrit 33.9 % (36.0-46.0); Hemoglobin 11.0 g/dL (12.2-16.2); Mean Corpuscular Hemoglobin 28.1 pg (28.0-32.0); Mean Corpuscular Volume 86.9 fL (80.0-100.0); Nucleated Red Blood Cells % 0.1 %
[2024-11-27] MEDS: hydrALAZINE HCL 20 MG/ML VL IV PRN (10:45)
[2024-11-27] MEDS: FUROSEMIDE 40 MG/4 ML VIAL IV SCH (13:23)
[2024-11-27] MEDS ORDERED: ATEN50TA PO (15:38)
[2024-11-27] MEDS ORDERED: LOSA-535 PO (15:38)
[2024-11-27] MEDS ORDERED: LEVO100I IV (15:38)
[2024-11-27] MEDS ORDERED: CLOP75TA70 PO (15:38)
[2024-11-27] MEDS ORDERED: ATOR20TA50 PO (15:38)
[2024-11-27] MEDS ORDERED: PANT40TA2 PO (15:38)
--- NOTE | 2024-11-27 16:45 | DVHPNRES ---
Progress Note Date Seen: Nov 27, 2024 Resident Creating Document: OSCAR CANDELARIO RESIDENT Medical Necessity Reason Pt with a Central, PICC or Fol: No Subjective Review of Systems Brief history and review of system on admission: Lucina Garcia is a 63-year-old female with past medical history of TIA, diabetes mellitus, hyperlipidemia and hypertension who presented to ER with cc of headache, dizziness, weakness. Headache was rated 8/10, throbbing, associated w/ mild tearing in the left eye. She had nausea, vomiting, with 3 episodes of vomiting before presenting to ER. On arrival to ER she had an episode of dizziness. She also complained for SOB since 2 yrs, progressively getting worse, now experience SOB on walking 10 feet. PMHx: TIAs in 2013, diabetes mellitus, hyperlipidemia and hypertension PSHx: Unkown abdominal surgery in past Social history: Denies smoking, alcohol, recreational drug. Lives in house with daughter. Home medication: Unsure ROS: Constitutional: Complains of chills HEENT: Denies changes in vision and hearing. Respiratory: Shortness of breaths Cardiovascular: Denies chest discomfort or palpitations GI: Nausea, vomiting : Denies dysuria and urinary frequency. Musculoskeletal: Denies myalgias and joint pain Skin: Denies rash and pruritus. Neurological: Dizziness, headache, with tearing of left eye 11/27/24: She was examined at bedside today. Her vitals show high blood pressure. Continues to experience shortness of breath. We will continue diuresing, Positive balance, start strict I&O and increase Lasix dose. Objective vital signs Vital Sign Date Time Temp Pulse Resp B/P (MAP) Pulse Ox O2 Delivery O2 Flow Rate FiO2 11/27/24 13:23 160/75 11/27/24 13:00 97.2 75 20 97 97.2 11/27/24 08:00 Room Air* 0 21 Total Intake and Output 11/26/24 11/26/24 11/27/24 14:59 22:59 06:59 Intake Total 600 ml 547 ml Output Total 950 ml Balance 600 ml -403 ml medications Current Medications Medications Dose Ordered Sig/Dasha Route Start Time Stop Time Status Last Admin Dose Admin Aspirin 81 mg DAILY PO 11/26/24 10:00 11/27/24 08:12 81 MG Amlodipine Besylate 5 mg DAILY PO 11/26/24 10:00 11/27/24 08:13 5 MG Diagnostic Test (Pha) 1 strip IQ4HR 11/26/24 00:00 11/27/24 12:00 1 STRIP Insulin Human Regular IQ4HR SC 11/26/24 00:00 11/27/24 08:37 3 UNITS Dextrose 50 ml UD PRN IV 11/25/24 22:30 Sodium Chloride 10 ml Q8HR IV 11/26/24 06:00 11/27/24 12:55 10 ML Ondansetron HCl 4 mg Q4HP PRN IV 11/25/24 22:30 Acetaminophen 650 mg Q6HP PRN PO 11/25/24 22:30 Atorvastatin Calcium 40 mg HS PO 11/26/24 22:00 11/26/24 22:31 40 MG Furosemide 40 mg DAILY IV 11/27/24 12:00 11/27/24 13:23 40 MG Insulin Glargine 10 units HS SC 11/27/24 22:00 Examination General: Patient alert and oriented in person, place and time. Patient following commands. HEENT: Normocephalic, atraumatic, moist mucous membranes Respiratory/pulmonary: Clear lungs bilaterally, no associated crackles or wheezes. Cardiovascular: Normal heart sounds S1 and S2 with no associated murmurs Abdomen: Abdomen distended, there is no pain to palpation in any of the abdominal quadrants, no palpable masses. Extremities: Grade 1 pitting edema. There is no peripheral edema present at the lower extremities. Peripheral Pulses: 3+ Radial (R). 3+ Radial (L). 3+ Dorsalis pedis (R). 3+ Dorsalis pedis(L) Skin: No rashes or pruritus, there is no sacral edema present at this time. Neurological: Intact cranial nerves with no focal neurologic deficits. No meningeal signs laboratory and microbiology Laboratory Tests 11/27/24 06:58 Test 11/27/24 06:58 Range/Units Serum Glucose 202 H 74-106 mg/dL Problem List/Assessment/Plan Problem List/Assessment/Plan Presyncope, ruling out cardiac causes Acute diastolic heart failure, new diagnosis Echo revealed mild left ventricular hypertrophy, LV diastolic dysfunction, aortic sclerosis. LVEF 65%. BNP elevated CXR: Cardiomegaly without pulmonary vascular congestion. Cardiology consulted, recommended: Continue Amlodipine, Aspirin, Lipitor, IV Hydralazine for SBP > 150. Continued diuresis. Strict I&O Increase furosemide to 40 daily Monitor telemetry Hypertensive emergency, resolving Primary headache due to Migraine/cluster headache, possible Blood pressure management with amlodipine, hydralazine Dyslipidemia Continue Atorvastatin Diabetes mellitus Continue sliding scale insulin Acute kidney injury, likely due to VMN Creatinine 1.87 Type 2 NSTEMI, likely due to hypertensive emergency Normocytic, normochromic anemia, unspecified Hypocalcemia, resolved Morbid obesity Pancreatitis, ruled out Lipase WNL DIET: consistent carb DVT PROPHYLAXIS: SCD CODE STATUS: Goals of care discussed with patient at bedside for more than 35 minutes. Full code DISPOSITION: Med/surge Patient's status and plan discussed with the patient. Case discussed with Dr. Birch. Plan discussed with: Patient My Orders My Orders Orders - OSCAR CANDELARIO Procedure Category Date Status Time Furosemide Injection PHA 11/27/24 In Process (Lasix Injection) 12:00 Insulin Lantus PHA 11/27/24 In Process (Glargine) (Lantus) 22:00 Strict I & O HARDIK 11/27/24 In Process 11:57 Date of Service: Nov 27, 2024 Billing Provider: HONG BIRCH MD Common Visit Codes: [id number] INP/OBS CARE(HIGH) OSCAR CANDELARIO Nov 27, 2024 16:45 HONG BIRCH MD Dec 01, 2024 22:12
[2024-11-27] MEDS: LABETALOL HCL 20 MG/4 ML VL IV ONE (21:59)
[2024-11-27] MEDS: INSULIN LANTUS (GLARGINE) 1 /0.01ml (100units/ml) SC SCH (22:09)
--- NOTE | 2024-11-27 23:52 | DVHPN2 ---
Progress Note - Dictate Date Seen: Nov 27, 2024 Medical Necessity Reason Pt with a Central, PICC or Fol: No Subjective Patient was seen and evaluated in follow up. Patient is complaining of generalized pain. 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 Echocardiogram showed an EF of 65%. Telemetry reviewed. vital signs Vital Sign Date Time Temp Pulse Resp B/P (MAP) Pulse Ox O2 Delivery O2 Flow Rate FiO2 11/27/24 13:23 160/75 11/27/24 09:00 97.3 84 20 95 97.3 11/27/24 08:00 Room Air* 0 21 Total Intake and Output 11/26/24 11/26/24 11/27/24 15:00 23:00 07:00 Intake Total 600 ml 547 ml Output Total 950 ml Balance 600 ml -403 ml medications Current Medications Medications Dose Ordered Sig/Dasha Route Start Time Stop Time Status Last Admin Dose Admin Aspirin 81 mg DAILY PO 11/26/24 10:00 11/27/24 08:12 81 MG Amlodipine Besylate 5 mg DAILY PO 11/26/24 10:00 11/27/24 08:13 5 MG Diagnostic Test (Pha) 1 strip IQ4HR 11/26/24 00:00 11/27/24 12:00 1 STRIP Insulin Human Regular IQ4HR SC 11/26/24 00:00 11/27/24 08:37 3 UNITS Dextrose 50 ml UD PRN IV 11/25/24 22:30 Sodium Chloride 10 ml Q8HR IV 11/26/24 06:00 11/27/24 12:55 10 ML Ondansetron HCl 4 mg Q4HP PRN IV 11/25/24 22:30 Acetaminophen 650 mg Q6HP PRN PO 11/25/24 22:30 Atorvastatin Calcium 40 mg HS PO 11/26/24 22:00 11/26/24 22:31 40 MG Furosemide 40 mg DAILY IV 11/27/24 12:00 11/27/24 13:23 40 MG Insulin Glargine 10 units HS SC 11/27/24 22:00 objective GENERAL: Alert and oriented x 3. No acute distress. EYES: PERRL, EOMI. Anicteric. HENT: Moist mucous membranes. LUNGS: Clear to auscultation bilaterally. CARDIOVASCULAR: Regular rate and rhythm. ABDOMEN: Soft, nontender and nondistended. EXTREMITIES: No edema. NEUROLOGIC: No focal neurological deficits. SKIN: Warm, dry. laboratory and microbiology Laboratory Tests 11/27/24 06:58 Test 11/27/24 06:58 Range/Units Serum Glucose 202 H 74-106 mg/dL Problem List Elevated troponin. Generalized weakness. Diabetes mellitus with hypoglycemia. HTN. Assessment/Plan Continued all current supportive medical care. Tylenol for pain management. Amlodipine. Aspirin. Diuretics with Lasix. Additional plan as per the hospital course. Plan discussed with: Patient MAITE ALCALA MD Nov 27, 2024 14:06
[2024-11-28] VITALS (8 sets, daily range): BP systolic 121–175; BP diastolic 47–83; PULSE 71–99; RESP 12–20; TEMP 96.5–98; O2SAT 95–99
[2024-11-28 00:12] LABS: COVID19 ANTIGEN SOFIA FIA NEGATIVE (NEGATIVE)
[2024-11-28 08:02] LABS: Potassium 4.0 mmol/L (3.5-5.1); Sodium 143 mmol/L (136-145)
[2024-11-28 08:03] LABS: Anion Gap 11 (5-15); Calcium 9.1 mg/dL (8.7-10.4); Carbon Dioxide 22 mmol/L (20-31)
[2024-11-28 08:08] LABS: BUN/Creatinine Ratio 16.3 (10.0-20.0)
[2024-11-28 08:18] LABS: Blood Urea Nitrogen 30 mg/dL (9-23); Chloride 110 mmol/L (98-107); Glucose 163 mg/dL (74-106)
[2024-11-28] MEDS: LABETALOL HCL 20 MG/4 ML VL IV ONE (11:41)
--- NOTE | 2024-11-28 15:10 | DVHPNRES ---
Progress Note Date Seen: Nov 28, 2024 Resident Creating Document: RUBIA CHAVEZ Medical Necessity Reason Pt with a Central, PICC or Fol: No Subjective Review of Systems Patient seen at bedside in the morning. No further episodes of vomiting or headaches. BP was 174/80. Amlodipine increased to 10mg Objective vital signs Vital Sign Date Time Temp Pulse Resp B/P (MAP) Pulse Ox O2 Delivery O2 Flow Rate FiO2 11/28/24 12:55 97.8 75 20 159/64 (95) 99 97.8 11/28/24 08:00 Room Air* 0 21 Total Intake and Output 11/27/24 11/27/24 11/28/24 15:00 23:00 07:00 Intake Total 1240 ml 900 ml Output Total 800 ml Balance 440 ml 900 ml medications Current Medications Medications Dose Ordered Sig/Dasha Route Start Time Stop Time Status Last Admin Dose Admin Aspirin 81 mg DAILY PO 11/26/24 10:00 11/28/24 08:25 81 MG Amlodipine Besylate 5 mg DAILY PO 11/26/24 10:00 11/28/24 08:25 5 MG Diagnostic Test (Pha) 1 strip IQ4HR 11/26/24 00:00 11/28/24 11:54 1 STRIP Insulin Human Regular IQ4HR SC 11/26/24 00:00 11/28/24 11:54 2 UNITS Dextrose 50 ml UD PRN IV 11/25/24 22:30 Sodium Chloride 10 ml Q8HR IV 11/26/24 06:00 11/28/24 06:00 10 ML Ondansetron HCl 4 mg Q4HP PRN IV 11/25/24 22:30 Acetaminophen 650 mg Q6HP PRN PO 11/25/24 22:30 Atorvastatin Calcium 40 mg HS PO 11/26/24 22:00 11/27/24 21:52 40 MG Furosemide 40 mg DAILY IV 11/27/24 12:00 11/28/24 08:24 40 MG Insulin Glargine 10 units HS SC 11/27/24 22:00 11/27/24 22:09 10 UNITS Examination General: Patient alert and oriented in person, place and time. Patient following commands. HEENT: Normocephalic, atraumatic, moist mucous membranes Respiratory/pulmonary: Clear lungs bilaterally, no associated crackles or wheezes. Cardiovascular: Normal heart sounds S1 and S2 with no associated murmurs Abdomen: Abdomen distended, there is no pain to palpation in any of the abdominal quadrants, no palpable masses. Extremities: Grade 1 pitting edema. There is no peripheral edema present at the lower extremities. Peripheral Pulses: 3+ Radial (R). 3+ Radial (L). 3+ Dorsalis pedis (R). 3+ Dorsalis pedis(L) Skin: No rashes or pruritus, there is no sacral edema present at this time. Neurological: Intact cranial nerves with no focal neurologic deficits. No meningeal signs laboratory and microbiology Laboratory Tests 11/28/24 07:20 11/27/24 06:58 Test 11/28/24 07:20 Range/Units Serum Glucose 163 H 74-106 mg/dL Problem List/Assessment/Plan Problem List/Assessment/Plan Presyncope, ruling out cardiac causes Acute diastolic heart failure, new diagnosis Echo revealed mild left ventricular hypertrophy, LV diastolic dysfunction, aortic sclerosis. LVEF 65%. BNP elevated CXR: Cardiomegaly without pulmonary vascular congestion. Cardiology consulted, recommended: Continue Amlodipine, Aspirin, Lipitor, IV Hydralazine for SBP > 150. Continued diuresis. Strict I&O Increase furosemide to 40 daily Monitor telemetry Hypertensive emergency, resolving Primary headache due to Migraine/cluster headache, possible Blood pressure management with amlodipine, hydralazine Dyslipidemia Continue Atorvastatin Diabetes mellitus Continue sliding scale insulin Acute kidney injury, likely due to VMN Creatinine 1.87 Plan discussed with: Patient Date of Service: Nov 28, 2024 Billing Provider: HONG BIRCH MD Common Visit Codes: [id number] INP/OBS CARE(HIGH) RUBIA CHAVEZ RESIDENT Nov 28, 2024 14:10 HONG BIRCH MD Dec 01, 2024 22:18
[2024-11-28] MEDS: hydrALAZINE HCL 20 MG/ML VL IV PRN (17:39)
--- NOTE | 2024-11-28 23:55 | DVHPN2 ---
Progress Note - Dictate Date Seen: Nov 28, 2024 Medical Necessity Reason Pt with a Central, PICC or Fol: No Subjective Patient was seen and evaluated in follow up. Patient is complaining of generalized pain. 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 COVID is negative. Telemetry reviewed. vital signs Vital Sign Date Time Temp Pulse Resp B/P (MAP) Pulse Ox O2 Delivery O2 Flow Rate FiO2 11/28/24 12:55 97.8 75 20 159/64 (95) 99 97.8 11/28/24 08:00 Room Air* 0 21 Total Intake and Output 11/27/24 11/27/24 11/28/24 15:00 23:00 07:00 Intake Total 1240 ml 900 ml Output Total 800 ml Balance 440 ml 900 ml medications Current Medications Medications Dose Ordered Sig/Dasha Route Start Time Stop Time Status Last Admin Dose Admin Aspirin 81 mg DAILY PO 11/26/24 10:00 11/28/24 08:25 81 MG Amlodipine Besylate 5 mg DAILY PO 11/26/24 10:00 11/28/24 08:25 5 MG Diagnostic Test (Pha) 1 strip IQ4HR 11/26/24 00:00 11/28/24 11:54 1 STRIP Insulin Human Regular IQ4HR SC 11/26/24 00:00 11/28/24 11:54 2 UNITS Dextrose 50 ml UD PRN IV 11/25/24 22:30 Sodium Chloride 10 ml Q8HR IV 11/26/24 06:00 11/28/24 13:41 10 ML Ondansetron HCl 4 mg Q4HP PRN IV 11/25/24 22:30 Acetaminophen 650 mg Q6HP PRN PO 11/25/24 22:30 Atorvastatin Calcium 40 mg HS PO 11/26/24 22:00 11/27/24 21:52 40 MG Furosemide 40 mg DAILY IV 11/27/24 12:00 11/28/24 08:24 40 MG Insulin Glargine 10 units HS SC 11/27/24 22:00 11/27/24 22:09 10 UNITS objective GENERAL: Alert and oriented x 3. No acute distress. EYES: PERRL, EOMI. Anicteric. HENT: Moist mucous membranes. LUNGS: Clear to auscultation bilaterally. CARDIOVASCULAR: Regular rate and rhythm. ABDOMEN: Soft, nontender and nondistended. EXTREMITIES: No edema. NEUROLOGIC: No focal neurological deficits. SKIN: Warm, dry. laboratory and microbiology Laboratory Tests 11/28/24 07:20 11/27/24 06:58 Test 11/28/24 07:20 Range/Units Serum Glucose 163 H 74-106 mg/dL Problem List Elevated troponin. Generalized weakness. Diabetes mellitus with hypoglycemia. HTN. Assessment/Plan Continued all current supportive medical care. Tylenol for pain management. Amlodipine. Aspirin. Diuretics with Lasix. Additional plan as per the hospital course. Plan discussed with: Patient MAITE ALCALA MD Nov 28, 2024 14:34
[2024-11-29] VITALS (8 sets, daily range): BP systolic 112–183; BP diastolic 51–82; PULSE 87–103; RESP 15–18; TEMP 97.8–98.1; O2SAT 95–99
[2024-11-29 12:08] LABS: Alanine Aminotransferase 13 U/L (7-40); Alkaline Phosphatase 93 U/L (46-116); Anion Gap 11 (5-15); BUN/Creatinine Ratio 18.0 (10.0-20.0); Calcium 9.0 mg/dL (8.7-10.4); Carbon Dioxide 24 mmol/L (20-31); Chloride 107 mmol/L (98-107); Potassium 4.1 mmol/L (3.5-5.1); Sodium 142 mmol/L (136-145); Total Protein 6.3 g/dL (5.7-8.2)
[2024-11-29 12:09] LABS: Albumin 3.8 g/dL (3.2-4.8); Bilirubin, Total 0.5 mg/dL (0.2-1.0); Blood Urea Nitrogen 34 mg/dL (9-23); Glucose 168 mg/dL (74-106)
--- NOTE | 2024-11-29 16:00 | DVHPNRES ---
Progress Note Date Seen: Nov 29, 2024 Resident Creating Document: OSCAR CANDELARIO RESIDENT Medical Necessity Reason Pt with a Central, PICC or Fol: No Subjective Review of Systems Brief history and review of system on admission: Lucina Garcia is a 63-year-old female with past medical history of TIA, diabetes mellitus, hyperlipidemia and hypertension who presented to ER with cc of headache, dizziness, weakness. Headache was rated 8/10, throbbing, associated w/ mild tearing in the left eye. She had nausea, vomiting, with 3 episodes of vomiting before presenting to ER. On arrival to ER she had an episode of dizziness. She also complained for SOB since 2 yrs, progressively getting worse, now experience SOB on walking 10 feet. PMHx: TIAs in 2013, diabetes mellitus, hyperlipidemia and hypertension PSHx: Unkown abdominal surgery in past Social history: Denies smoking, alcohol, recreational drug. Lives in house with daughter. Home medication: Unsure ROS: Constitutional: Complains of chills HEENT: Denies changes in vision and hearing. Respiratory: Shortness of breaths Cardiovascular: Denies chest discomfort or palpitations GI: Nausea, vomiting : Denies dysuria and urinary frequency. Musculoskeletal: Denies myalgias and joint pain Skin: Denies rash and pruritus. Neurological: Dizziness, headache, with tearing of left eye 11/27/24: Her vitals show high blood pressure. Continues to experience shortness of breath. We will continue diuresing, Positive balance, start strict I&O and increase Lasix dose. 11/29/2024: She was examined at bedside today. Vitals are stable. She reports improvement in shortness of breaths. Positive balance on strict I&O, with goal output 1 L. We will continue increase Lasix dose. We will try switching to oral Lasix tomorrow. Objective vital signs Vital Sign Date Time Temp Pulse Resp B/P (MAP) Pulse Ox O2 Delivery O2 Flow Rate FiO2 11/29/24 13:00 97.8 87 15 163/76 (105) 96 97.8 11/29/24 08:00 Room Air* 0 21 Total Intake and Output 11/28/24 11/28/24 11/29/24 15:00 23:00 07:00 Intake Total 100 ml 488 ml 100 ml Output Total 400 ml Balance 100 ml 88 ml 100 ml medications Current Medications Medications Dose Ordered Sig/Dasha Route Start Time Stop Time Status Last Admin Dose Admin Aspirin 81 mg DAILY PO 11/26/24 10:00 11/29/24 09:05 81 MG Diagnostic Test (Pha) 1 strip IQ4HR 11/26/24 00:00 11/29/24 12:00 1 STRIP Insulin Human Regular IQ4HR SC 11/26/24 00:00 11/29/24 12:42 3 UNITS Dextrose 50 ml UD PRN IV 11/25/24 22:30 Sodium Chloride 10 ml Q8HR IV 11/26/24 06:00 11/29/24 14:12 10 ML Ondansetron HCl 4 mg Q4HP PRN IV 11/25/24 22:30 Acetaminophen 650 mg Q6HP PRN PO 11/25/24 22:30 Atorvastatin Calcium 40 mg HS PO 11/26/24 22:00 11/28/24 21:43 40 MG Insulin Glargine 10 units HS SC 11/27/24 22:00 11/28/24 22:57 10 UNITS Amlodipine Besylate 10 mg DAILY PO 11/29/24 10:00 11/29/24 09:05 10 MG Furosemide 40 mg BIDD IV 11/29/24 18:00 Examination General: Patient alert and oriented in person, place and time. Patient following commands. HEENT: Normocephalic, atraumatic, moist mucous membranes Respiratory/pulmonary: Clear lungs bilaterally, no associated crackles or wheezes. Cardiovascular: Normal heart sounds S1 and S2 with no associated murmurs Abdomen: Abdomen distended, there is no pain to palpation in any of the abdominal quadrants, no palpable masses. Extremities: Grade 1 pitting edema. There is no peripheral edema present at the lower extremities. Peripheral Pulses: 3+ Radial (R). 3+ Radial (L). 3+ Dorsalis pedis (R). 3+ Dorsalis pedis(L) Skin: No rashes or pruritus, there is no sacral edema present at this time. Neurological: Intact cranial nerves with no focal neurologic deficits. No meningeal signs laboratory and microbiology Laboratory Tests 11/29/24 11:30 11/27/24 06:58 Test 11/29/24 11:30 Range/Units Serum Glucose 168 H 74-106 mg/dL Problem List/Assessment/Plan Problem List/Assessment/Plan Presyncope, ruling out cardiac causes Acute diastolic heart failure, new diagnosis Echo revealed mild left ventricular hypertrophy, LV diastolic dysfunction, aortic sclerosis. LVEF 65%. BNP elevated CXR: Cardiomegaly without pulmonary vascular congestion. Cardiology consulted, recommended: Continue Amlodipine, Aspirin, Lipitor, IV Hydralazine for SBP > 150. Monitor telemetry Continued diuresis. Strict I&O Increase furosemide to 40 IV b.i.d.; trial of switching furosemide to oral tomorrow Hypertensive emergency, resolving Primary headache due to Migraine/cluster headache, possible Blood pressure management with amlodipine, hydralazine Dyslipidemia Continue Atorvastatin Diabetes mellitus Continue sliding scale insulin Acute kidney injury, likely due to VMN Creatinine 1.87 Type 2 NSTEMI, likely due to hypertensive emergency Normocytic, normochromic anemia, unspecified Hypocalcemia, resolved Morbid obesity Pancreatitis, ruled out Lipase WNL DIET: consistent carb DVT PROPHYLAXIS: SCD CODE STATUS: Goals of care discussed with patient at bedside for more than 25 minutes. Full code DISPOSITION: Med/surge Patient's status and plan discussed with the patient. Case discussed with Dr. Birch. Plan discussed with: Patient (And daughter) Date of Service: Nov 29, 2024 Billing Provider: HONG BIRCH MD Common Visit Codes: [id number] INP/OBS CARE(HIGH) OSCAR CANDELARIO RESIDENT Nov 29, 2024 16:00 HONG BIRCH MD Dec 01, 2024 22:49
[2024-11-29] MEDS: FUROSEMIDE 40 MG/4 ML VIAL IV SCH (17:19)
[2024-11-29] MEDS: LABETALOL HCL 20 MG/4 ML VL IV ONE (18:41)
[2024-11-30] VITALS (7 sets, daily range): BP systolic 125–173; BP diastolic 56–94; PULSE 86–101; RESP 15–18; TEMP 98–98.3; O2SAT 96–98
--- NOTE | 2024-11-30 00:03 | DVHPN2 ---
Progress Note - Dictate Date Seen: Nov 29, 2024 Medical Necessity Reason Pt with a Central, PICC or Fol: No Subjective Patient was seen and evaluated in follow up. Patient reports improvement in SOB. Patient is continued on Lasix. BUN 34, Teacher Counselor 1.89. Telemetry reviewed. vital signs Vital Sign Date Time Temp Pulse Resp B/P (MAP) Pulse Ox O2 Delivery O2 Flow Rate FiO2 11/29/24 21:00 98.0 100 16 181/67 (105) 96 98.0 11/29/24 08:00 Room Air* 0 21 Total Intake and Output 11/29/24 11/29/24 11/30/24 15:00 23:00 07:00 Intake Total 500 ml Output Total 1000 ml Balance -500 ml medications Current Medications Medications Dose Ordered Sig/Dasha Route Start Time Stop Time Status Last Admin Dose Admin Aspirin 81 mg DAILY PO 11/26/24 10:00 11/29/24 09:05 81 MG Diagnostic Test (Pha) 1 strip IQ4HR 11/26/24 00:00 11/29/24 20:45 1 STRIP Insulin Human Regular IQ4HR SC 11/26/24 00:00 11/29/24 20:48 338 UNITS Dextrose 50 ml UD PRN IV 11/25/24 22:30 Sodium Chloride 10 ml Q8HR IV 11/26/24 06:00 11/29/24 21:51 10 ML Ondansetron HCl 4 mg Q4HP PRN IV 11/25/24 22:30 Acetaminophen 650 mg Q6HP PRN PO 11/25/24 22:30 Atorvastatin Calcium 40 mg HS PO 11/26/24 22:00 11/29/24 21:51 40 MG Insulin Glargine 10 units HS SC 11/27/24 22:00 11/29/24 21:58 10 UNITS Amlodipine Besylate 10 mg DAILY PO 11/29/24 10:00 11/29/24 09:05 10 MG Furosemide 40 mg BIDD IV 11/29/24 18:00 11/29/24 17:19 40 MG objective GENERAL: Alert and oriented x 3. No acute distress. EYES: PERRL, EOMI. Anicteric. HENT: Moist mucous membranes. LUNGS: Clear to auscultation bilaterally. CARDIOVASCULAR: Regular rate and rhythm. ABDOMEN: Soft, nontender and nondistended. EXTREMITIES: No edema. NEUROLOGIC: No focal neurological deficits. SKIN: Warm, dry. laboratory and microbiology Laboratory Tests 11/29/24 11:30 11/27/24 06:58 Test 11/29/24 11:30 Range/Units Serum Glucose 168 H 74-106 mg/dL Problem List Elevated troponin. Generalized weakness. Diabetes mellitus with hypoglycemia. HTN. Assessment/Plan Continued all current supportive medical care. Tylenol for pain management. Amlodipine. Aspirin. Diuretics with Lasix. Additional plan as per the hospital course. Plan discussed with: Patient MAITE ALCALA MD Nov 30, 2024 00:03
[2024-11-30] MEDS: MELATONIN 5 MG TAB PO SCH (02:04)
[2024-11-30 07:14] LABS: Anion Gap 11 (5-15); Calcium 9.2 mg/dL (8.7-10.4); Carbon Dioxide 24 mmol/L (20-31); Chloride 106 mmol/L (98-107); Potassium 3.9 mmol/L (3.5-5.1); Sodium 141 mmol/L (136-145)
[2024-11-30 07:20] LABS: BUN/Creatinine Ratio 15.7 (10.0-20.0)
[2024-11-30 07:22] LABS: Blood Urea Nitrogen 32 mg/dL (9-23); Glucose 122 mg/dL (74-106)
[2024-11-30] MEDS ORDERED: BUM1T PO (13:13)
--- NOTE | 2024-11-30 21:56 | DVHPN2 ---
Progress Note - Dictate Date Seen: Nov 30, 2024 Medical Necessity Reason Pt with a Central, PICC or Fol: No Subjective Patient was seen and evaluated in follow up. Patient has no new complaints at this time. Patient denies any cardiac symptoms. Patient is cardiac stable for discharge. Telemetry reviewed. vital signs Vital Sign Date Time Temp Pulse Resp B/P (MAP) Pulse Ox O2 Delivery O2 Flow Rate FiO2 11/30/24 13:29 87 158/71 (100) 11/30/24 13:00 98.0 17 97 98.0 11/30/24 08:00 Room Air* 0 21 Total Intake and Output 11/29/24 11/29/24 11/30/24 15:00 23:00 07:00 Intake Total 500 ml 720 ml Output Total 1000 ml 500 ml Balance -500 ml 220 ml objective GENERAL: Alert and oriented x 3. No acute distress. EYES: PERRL, EOMI. Anicteric. HENT: Moist mucous membranes. LUNGS: Clear to auscultation bilaterally. CARDIOVASCULAR: Regular rate and rhythm. ABDOMEN: Soft, nontender and nondistended. EXTREMITIES: No edema. NEUROLOGIC: No focal neurological deficits. SKIN: Warm, dry. laboratory and microbiology Laboratory Tests 11/30/24 04:58 11/27/24 06:58 Test 11/30/24 04:58 Range/Units Serum Glucose 122 H 74-106 mg/dL Problem List Elevated troponin. Generalized weakness. Diabetes mellitus with hypoglycemia. HTN. Assessment/Plan Continued all current supportive medical care. Tylenol for pain management. Amlodipine. Aspirin. Diuretics with Lasix. Additional plan as per the hospital course. Plan discussed with: Patient MAITE ALCALA MD Nov 30, 2024 21:56
--- NOTE | 2024-12-06 19:00 | DVHDSRES ---
Discharge Summary Date of Admission Resident Creating Document: OSCAR CANDELARIO RESIDENT Nov 25, 2024 at 23:26 Date of Discharge: Nov 30, 2024 Labs/Diagnostic Data: Laboratory Results Test 11/30/24 11:45 11/30/24 04:58 11/29/24 11:30 11/27/24 23:10 POC Glucose 158 mg/dl (70-106) Sodium Level 141 mmol/L (136-145) Potassium Level 3.9 mmol/L (3.5-5.1) Chloride Level 106 mmol/L (98-107) Carbon Dioxide Level 24 mmol/L (20-31) Anion Gap 11 (5-15) Blood Urea Nitrogen 32 mg/dL (9-23) Creatinine 2.04 mg/dL (0.550-1.02) Glomerular Filtration Rate Calc 27 mL/min (>90) BUN/Creatinine Ratio 15.7 (10.0-20.0) Serum Glucose 122 mg/dL (74-106) Calcium Level 9.2 mg/dL (8.7-10.4) Total Bilirubin 0.5 mg/dL (0.2-1.0) Aspartate Amino Transferase (AST) 16 U/L (13-40) Alanine Aminotransferase (ALT) 13 U/L (7-40) Alkaline Phosphatase 93 U/L (46-116) Total Protein 6.3 g/dL (5.7-8.2) Albumin 3.8 g/dL (3.2-4.8) SARS-CoV-2 Antigen (Rapid) Negative (NEGATIVE) Test 11/27/24 06:58 11/26/24 13:20 11/26/24 04:45 11/26/24 00:32 White Blood Count 9.2 10^3/uL (4.4-10.8) Red Blood Count 3.90 10^6/uL (4.0-5.20) Hemoglobin 11.0 g/dL (12.2-16.2) Hematocrit 33.9 % (36.0-46.0) Mean Corpuscular Volume 86.9 fL (80.0-100.0) Mean Corpuscular Hemoglobin 28.1 pg (28.0-32.0) Mean Corpuscular Hemoglobin Concent 32.4 g/dL (32.0-36.0) Red Cell Distribution Width 14.9 % (11.8-14.3) Platelet Count 224 10^3/uL (140-450) Mean Platelet Volume 9.6 fL (6.9-10.8) Neutrophils (%) (Auto) 65.1 % (37.0-80.0) Lymphocytes (%) (Auto) 20.3 % (10.0-50.0) Monocytes (%) (Auto) 7.9 % (0.0-12.0) Eosinophils (%) (Auto) 5.9 % (0.0-7.0) Basophils (%) (Auto) 0.8 % (0.0-2.0) Neutrophils # (Auto) 6.0 10 ^3/uL (1.6-8.6) Lymphocytes # (Auto) 1.9 10 ^3/uL (0.4-5.4) Monocytes # (Auto) 0.7 10 ^3/uL (0-1.3) Eosinophils # (Auto) 0.5 10 ^3/uL (0-0.8) Basophils # (Auto) 0.1 10 ^3/uL (0-0.2) Nucleated Red Blood Cells 0.1 % Influenza Type A Antigen Negative (Negative) Influenza Type B Antigen Negative (Negative) Hemoglobin A1c 7.3 % A1C (<5.7) Troponin I High Sensitivity 96 ng/L (</=34) Test 11/25/24 19:47 B-Type Natriuretic Peptide 433.18 pg/mL (0-100) Lipase 36 U/L (12-53) Other Laboratory Tests 11/30/24 04:58 11/27/24 06:58 Brief Hx & Hospital Course: Brief history on admission: She is a 63-year-old female with past medical history of TIA, DM, HLD and hypertension who presented to ER with cc of headache, dizziness, weakness. Headache was 8/10, throbbing, associated w/ mild tearing in the left eye. On arrival to ER she had an episode of dizziness with the feeling of everything around her was spinning. She had nausea, vomiting, with 3 episodes of vomiting before presenting to ER. She also complained for SOB since 2 yrs, progressively getting worse, now experience SOB on walking 10 feet. Hospital course: During her stay, presyncope workup was done. She was monitored on tele. Initial labs revealed elevated BNP, Echo revealed LV diastolic dysfunction, aortic sclerosis, LVEF 65%. She was managed with IV diuresis, strict I&O. Cardiology was on board, recommended continuing diuresis. Her symptoms improved. Discharged on oral bumex. Final diagnosis: Presyncope likely due to dehydration Cardiac arrhythmias ruled out Acute diastolic heart failure, new diagnosis Hypertensive emergency, resolved Primary headache due to Migraine/cluster headache, possible Dyslipidemia Acute kidney injury, likely due to VMN Type 2 NSTEMI, likely due to hypertensive emergency Normocytic, normochromic anemia, unspecified Hypocalcemia, resolved Morbid obesity Pancreatitis, ruled out Elevated troponin. Generalized weakness. Diabetes mellitus Hypoglycemia, ruled out Discharge plan: Please follow up with PCP in one week Continue Bumex 1 mg daily for 7 days Continue home medications Condition at Discharge: Stable Final Diagnosis/Problems List Presyncope likely due to dehydration Acute diastolic heart failure, new diagnosis Hypertensive emergency, resolved Primary headache due to Migraine/cluster headache, possible Dyslipidemia Acute kidney injury, likely due to VMN Type 2 NSTEMI, likely due to hypertensive emergency Normocytic, normochromic anemia, unspecified Hypocalcemia, resolved Morbid obesity Pancreatitis, ruled out Elevated troponin. Generalized weakness. Diabetes mellitus Hypoglycemia, ruled out Discharge Disposition: Home Discharge Instruct/Medications Diet: Consistent carbohydrate, Cardiac 2g Na,low cholest Activity: No Restrictions, As Tolerated Follow Up/Referral: Follow up with PCP in 1 week Follow up in discharge clinic in 1 week Medications: Continue Bumex 1 mg daily for 7 days Continue home medications Scheduled Atenolol (Atenolol), 50 MG PO BID, (Reported) Atorvastatin Calcium (Atorvastatin Calcium), 1 TAB PO DAILY, (Reported) Bumetanide (Bumex Tablet), 1 MG PO DAILY Clopidogrel Bisulfate (Clopidogrel), 75 MG PO DAILY, (Reported) Losartan Potassium (Losartan Potassium), 100 MG PO DAILY, (Reported) Pantoprazole Sodium Sesquihydr (Protonix), 40 MG PO DAILY, (Reported) Miscellaneous Medications Levothyroxine Sodium (Synthroid), 100 MCG IV, (Reported) Discharge Statement: "Patient was advised to return to the ER or call 911 if any headaches, dizziness, shortness of breath, chest pain, abdominal pain, bleeding, fevers, or worsening of medical condition. Patient was counseled about treatment plan, medications, possible side effects, patientverbalized understanding. All questions were answered to the best of my ability. This discharge took greater then 30 minutes in planning, reviewing documentation, counseling the patient, and discussing with other team members." ASSESSMENT ASSESSMENT Assessment Acute diastolic heart failure, new diagnosis Hypertensive emergency, resolving OSCAR CANDELARIO RESIDENT Dec 06, 2024 19:00
== END 2024-11-30 14:30 | disposition home or self-care (01) | DRG 280 ==
LOC: EDBD 19:07 → ER 19:07 → OVERFLOW 23:26 → TELE-WESTW 23:28
PROVIDERS: ADMIT Student in an Organized Health Care Education/Training Program; ATTEND Student in an Organized Health Care Education/Training Program
DX: I11.0 Hypertensive heart disease with heart failure (principal); I50.31 Acute diastolic (congestive) heart failure; I21.A1 Myocardial infarction type 2; N17.9 Acute kidney failure, unspecified; E11.649 Type 2 diabetes mellitus with hypoglycemia without coma; E83.51 Hypocalcemia; G44.009 Cluster headache syndrome, unspecified, not intractable; E78.5 Hyperlipidemia, unspecified; D64.9 Anemia, unspecified; E66.01 Morbid (severe) obesity due to excess calories; Z86.73 Personal history of transient ischemic attack (TIA), and cerebral infarction without residual deficits; Z90.710 Acquired absence of both cervix and uterus; Z79.899 Other long term (current) drug therapy; E86.0 Dehydration
CPT/HCPCS: 36415; 71045; 80048; 80053; 82962; 83036; 83690; 83880; 84484; 85025; 87426; 87804; 93005; 93306; 96360; G0378; J1815